=== PATIENT | male | born 1960 | race Caucasian/White ===

== ENCOUNTER 2018-11-06 16:50 | Emergency (ER) | payer MEDICAID ==
[~2018-11-06] VITALS: Ht 162.6 cm; Wt 61.2 kg
[2018-11-06 17:20] VITALS: BP 128/84
[2018-11-06] MEDS ORDERED: methylPREDNISolone SOD SUCC 125 MG/2ML VIAL IM ONE (18:00)
[2018-11-06] MEDS ORDERED: diphenhydrAMINE HCL 50 MG CAPSULE PO ONE (18:00)
[2018-11-06] MEDS ORDERED: methylPREDNISolone SOD SUCC 125 MG/2ML VIAL ONE (18:01)
[2018-11-06] MEDS ORDERED: diphenhydrAMINE HCL 25 MG CAPSULE ONE (18:01)
== END 2018-11-06 18:25 | disposition home or self-care (01) ==
LOC: ER 17:04
DX: L50.9 Urticaria, unspecified (principal); Z59.0 Homelessness
CPT/HCPCS: J2930; Q0163